=== PATIENT | female | born 1990 | race Caucasian/White ===

== ENCOUNTER 2020-03-27 04:17 | Emergency (ER) | payer OTHER, SELFPAY ==
--- NOTE | ~2020-03-27 | CT_ITS ---
EXAMINATION: CTA chest PE protocol DATE: 03/27/2020 08:21 CDT INDICATION: Chest pain and elevated d-dimer. TECHNIQUE: Computed tomographic angiography (CTA) of the chest was performed with 100 mL Omnipaque-35 0 intravenous contrast. The dose-length product was 322.65 mGy-cm. Maximum intensity projection 3D-re constructions of the aorta and other arteries were constructed by the technologist on a separate work station. COMPARISON: Chest x-ray dated 03/27/2020. FINDINGS: Study is technically adequate without evidence for pulmonary embolism. No evidence for aort ic aneurysm or dissection. Heart size normal. No pleural or pericardial effusion. No thoracic lymphad enopathy. There is residual thymic tissue. No pneumothorax. No focal airspace consolidation. No endob ronchial lesions. No acute osseous abnormality. IMPRESSION: 1. No evidence for pulmonary embolism. No acute cardiopulmonary disease. Reviewed, dictated and finalized at location A.
--- NOTE | ~2020-03-27 | XR_ITS ---
EXAMINATION: XR chest 2V 03/27/2020 04:42 INDICATION: Chest pain PROCEDURE: PA and lateral views of the chest COMPARISON: No prior studies for comparison. FINDINGS: The lungs are clear. The cardiomediastinal silhouette is within normal limits. There are no pleural effusions. There is no pneumothorax suspected. IMPRESSION: 1: NO ACUTE CARDIOPULMONARY DISEASE. Reviewed, dictated and finalized at location A.
[2020-03-27 04:23] VITALS: BP 104/94; PULSE 89; RESP 18; TEMP 36.9; O2SAT 100
[2020-03-27 04:26] VITALS: PULSE 88
--- NOTE | 2020-03-27 04:27 | ECG_ITS ---
Measurements Intervals [place] Rate: 79 P: 30 TX: 175 QRS: 29 QRSD: 85 T: 28 QT: 373 QTc: 429 Interpretive Statements SINUS RHYTHM INCOMPLETE RIGHT BUNDLE BRANCH BLOCK BASELINE WANDER- II, III, V6 BORDERLINE ECG Electronically Signed On 03-27-2020 7:50:02 CDT by Nathan Gage D.O.
[2020-03-27] MEDS: ASPIRIN 81 MG CHEWABLE TABLET 324 MG PO (04:31)
--- NOTE | 2020-03-27 04:37 | ED.CHESTPAIN ---
HPI - Chest Pain General Chief Complaint: Chest Pain Stated Complaint: CP Time Seen by Provider: 03/27/20 04:26 Source: RN notes reviewed History of Present Illness HPI narrative: Patient presents emergency department from home for chest pain. Patient states she has been having intermittent chest pain for the past 3 days. Pain is located in the left upper chest and does not radiate. Described as aching in nature. Patient states that symptoms do appear to be worse when she has anxiety. She denies any fevers or chills shortness of breath abdominal pain nausea vomiting or any other symptoms. Patient states that the episode this evening awoke her from sleep Related Data Allergies Allergy/AdvReac Type Severity Reaction Status Date / Time No Known Allergies Allergy Verified 03/27/20 04:25 Review of Systems Review of Systems: Narrative: Gen.: Denies fevers or chills ENT: Denies congestion Respiratory: Denies shortness of breath or cough CV: See HPI GI: Denies abdominal pain nausea, emesis or diarrhea denies burning, urgency, frequency or hematuria Musculoskeletal: Denies back pain or muscle pain Neuro: Denies numbness, tingling, weakness or focal weakness Skin: Denies rash Except as documented, all other systems reviewed and negative PMFSH Past Medical History Medical History (Updated 03/27/20 @ 06:47 by Jabari Ordonez DO) Patient denies significant medical history Social History Social History (Updated 03/27/20 @ 04:38 by Jabari Ordonez DO) Smoking status: Never smoker Gender identity (if verbalized by the patient): Female Exam Narrative: Exam Narrative: APPEARANCE: No acute distress, nontoxic, resting in bed EYES: EOMI HEENT: Normocephalic, atraumatic, OMM RESPIRATORY: No respiratory distress Clear to auscultation bilaterally with no rhonchi wheezing or rales. CARDIOVASCULAR: Regular rate and rhythm without murmurs rubs or gallops. ABDOMINAL: Soft, nontender, nondistended, no rebound or guarding MUSCULOSKELETAl: Moves all extremities. No clubbing, cyanosis or edema. NEURO: Awake and alert. Following commands, speech normal, no focal deficits SKIN:: Warm, dry. No rashes lesions or abrasions PSYCHIATRIC: Normal affect/mood, Course Course Emergency Course: Patient states chest pain has resolved following GI cocktail Discussed with patient results of workup and diagnosis. Discussed need for follow-up with primary care, proper use of medication, and reasons to return to the emergency department. Patient understands and agrees to current treatment plan Vital Signs Vital signs: Vital Signs Temperature 98.4 F 03/27/20 04:23 Pulse Rate 89 03/27/20 04:23 Respiratory Rate 18 03/27/20 04:23 Blood Pressure 104/94 H 03/27/20 04:23 Pulse Oximetry 100 03/27/20 04:23 Temperature 98.4 F 03/27/20 04:23 Pulse Rate 60 03/27/20 08:35 Respiratory Rate 20 03/27/20 08:35 Blood Pressure 97/77 L 03/27/20 08:35 Pulse Oximetry 100 03/27/20 08:35 MDM - Chest Pain MDM Narrative Medical decision making narrative: Patient's EKGs and labs are without significant high risk changes. Cardiac risk factors reviewed. Patient is felt likely low risk for ACS and reasonable for further risk stratification testing as an outpatient. CTA shows no PE, aneurysm or pneumonia patient is felt to be a reasonable candidate for continued evaluation as an outpatient Lab Data Result diagrams: 03/27/20 04:30 03/27/20 04:30 Labs: Lab Results 03/27/20 03/27/20 03/27/20 Range/Units 04:29 04:30 04:30 WBC 9.7 (4.5-10.0) K/mm3 RBC 4.81 (4.2-5.4) M/mm3 Hgb 14.8 (12.0-15.0) g/dL Hct 41.6 (37.0-47.0) % MCV 86.5 (80-100) fl MCH 30.8 (26-34) pg MCHC 35.6 (32-36) g/dl RDW 11.6 (11.5-14.5) % Plt Count 301 (150-375) k/mm3 MPV 8.6 (7.4-10.4) fl Immature Gran % (Auto) 0.3 (0-0.5) % Neut % (Auto) 46.1 (45.5-73.1) % Lymph % (Au
[2020-03-27 04:38] LABS: Basophils Absolute Auto 0.1 K/mm3 (0.0-0.1); Basophils Percent Auto 1.1 % (0.2-1.2); Eosinophils Absolute Auto 0.3 K/mm3 (0-0.3); Eosinophils Percent Auto 2.6 % (0-4.4); Hematocrit 41.6 % (37.0-47.0); Hemoglobin 14.8 g/dL (12.0-15.0); Immature Granulocyte Absolute 0.03 K/mm3 (0.00-0.031); Immature Granulocyte Percent A 0.3 % (0-0.5); Lymphocytes Absolute Auto 4.22 K/mm3 (0.9-3.2); Lymphocytes Percent Auto 43.5 % (18.3-44.2); Mean Corpuscular HGB Conc 35.6 g/dl (32-36); Mean Corpuscular Hemoglobin 30.8 pg (26-34); Mean Corpuscular Volume 86.5 fl (80-100); Mean Platelet Volume 8.6 fl (7.4-10.4); Monocytes Absolute Auto 0.6 K/mm3 (0.1-0.6); Monocytes Percent Auto 6.4 % (2.6-8.5); Neutrophils Absolute Auto 4.5 K/mm3 (1.3-6.7); Neutrophils Percent Auto 46.1 % (45.5-73.1); Platelet Count Result 301 k/mm3 (150-375); Red Blood Count 4.81 M/mm3 (4.2-5.4); Red Cell Distribution Width 11.6 % (11.5-14.5); White Blood Count 9.7 K/mm3 (4.5-10.0)
[2020-03-27 04:49] LABS: INR 0.9; Prothrombin Time 12.3 Seconds (11.1-14.7)
[2020-03-27 04:50] LABS: Partial Thromboplastin Time 30.2 SECONDS (22.3-36.8)
[2020-03-27 04:51] LABS: Anion Gap 6 mmol/L (8-16); Blood Urea Nitrogen 13 mg/dL (7-17); Calcium 9.2 mg/dL (8.4-10.2); Carbon Dioxide 27 mmol/L (22-30); Chloride 103 mmol/L (98-107); Estimated CRCL calculation 98 ml/min; Estimated Glomerular Filt Rate > 60; Glucose 91 mg/dL (65-105); Potassium 3.7 mmol/L (3.4-5.0); Sodium 136 mmol/L (137-145)
[2020-03-27 04:52] LABS: D Dimer 0.53 ug/mL (<0.48)
[2020-03-27 04:53] LABS: Alanine Aminotransferase 24 U/L (4-35); Albumin Level 4.1 g/dL (3.5-5.1); Alkaline Phosphatase 71 U/L (38-126); Aspartate Amino Transferase 29 U/L (14-36); Bilirubin,Total 0.3 mg/dL (0.2-1.3); Lipase 61 U/L (23-300)
[2020-03-27] MEDS: KETOROLAC 30 MG/ML VIAL (*BKC) IV PUSH (04:58)
[2020-03-27 05:03] LABS: Troponin I < 0.012 ng/mL (0.000-0.034)
[2020-03-27 05:56] VITALS: BP 111/64; PULSE 66; RESP 16; O2SAT 98
[2020-03-27 06:59] VITALS: BP 115/78; PULSE 66; RESP 17; O2SAT 99
[2020-03-27 07:41] LABS: Troponin I < 0.012 ng/mL (0.000-0.034)
[2020-03-27 08:31] VITALS: BP 97/77; PULSE 60; RESP 20; O2SAT 100
[2020-03-27 08:35] VITALS: BP 97/77; PULSE 60; RESP 20; O2SAT 100
== END 2020-03-27 08:36 | disposition home or self-care (01) ==
PROVIDERS: Emergency Provider Emergency Medicine
DX: R07.89 Other chest pain (principal); I45.10 Unspecified right bundle-branch block
CPT/HCPCS: 36415; 71046; 71275; 80048; 80076; 83690; 84484; 85025; 85380; 85610; 85730; 93005; 96374; 99284; A9270; J1885; Q9967

== ENCOUNTER 2021-06-30 08:51 | Emergency (ER) | payer OTHER, SELFPAY ==
[2021-06-30 09:05] VITALS: BP 112/61; PULSE 88; RESP 16; TEMP 36.8; O2SAT 100
--- NOTE | 2021-06-30 09:13 | ED.FEMALEGU ---
HPI - Female Genitourinary General Chief complaint: Urogenital-Female Stated complaint: UTI Time Seen by Provider: 06/30/21 09:13 Source: patient and RN notes reviewed Mode of arrival: ambulatory Limitations: no limitations History of Present Illness HPI Narrative: 30-year-old female presents to the [facility] with complaints of UTI. Patient states that she has had urgency, burning, frequency and feels like she always has to urinate even after she gets goes. Denies chest pain, abdominal pain. No fevers. No nausea vomiting or diarrhea. Denies any concerns for an STD or . MD elicited complaint: UTI Related Data Home Medications Medication Instructions Recorded Confirmed levothyroxine 25 mcg PO DAILY 06/30/21 06/30/21 Allergies Allergy/AdvReac Type Severity Reaction Status Date / Time No Known Allergies Allergy Verified 03/27/20 04:25 Review of Systems Review of Systems: All systems reviewed & are unremarkable except as noted in HPI and below Constitutional: Constitutional: Reports no additional constitutional complaints, Denies chills and Denies fatigue Eyes: Eyes: Reports no additional eye complaints ENT: Reports system reviewed and no additional complaints, except as documented Cardiovascular: Cardiovascular: Reports no additional cardiovascular complaints and Denies chest pain Respiratory: Respiratory: Reports no additional respiratory complaints, Denies cough, Denies dyspnea and Denies wheezing Gastrointestinal: Gastrointestinal: Reports no additional gastrointestinal complaints, Denies abdominal pain, Denies nausea and Denies vomiting Genitourinary: Genitourinary: Reports as per HPI, Reports nocturia, Reports dysuria, Denies flank pain, Denies urinary incontinence and Denies vaginal discharge Musculoskeletal: Musculoskeletal: Reports no additional musculoskeletal complaints Integumentary/Breasts: Skin/Breast: Reports system reviewed and no additional complaints, except as docu Neurologic: Reports system reviewed and no additional complaints, except as documented Psychiatric: Psychiatric: Reports no additional psychiatric complaints Allergic/Immunologic: Allergic/Immunologic: Reports no additional allergic/immunologic complaints PMFSH Past Medical History Medical History (Updated 06/30/21 @ 09:21 by Charis Garcia) Patient denies significant medical history Surgical History Surgical History (Updated 06/30/21 @ 09:17 by Charis Garcia) Hx of dilation and curettage Social History Social History Smoking status: Never smoker Gender identity (if verbalized by the patient): Female Comments At the time of my signature, I reviewed and agree with the nursing past medical, surgical, social, and family history. There is no relevant family history pertinent to the patient complaint. Exam Const: General: healthy appearing, no acute distress and alert Nutritional Appearance: well nourished Orientation/consciousness: patient oriented x3 Limitations: no limitations HENMT: Head: normal to inspection Ears: external ears normal, TM's normal bilaterally and EAC's normal Eyes: Pupils: Equal, round and reactive pupils present Neck: Neck: normal visual inspection, no lymphadenopathy and no meningeal signs Chest: Chest palpation & inspection: normal inspection of the chest Resp: Effort & Inspection: normal respiratory effort and no use of accessory muscles Auscultation: clear to auscultation bilaterally, no crackles, no rales, no rhonchi and no wheezes Cardio: Rate: regular rate Rhythm: regular rhythm GI: GI Palp: Yes Soft to palpation, No Tenderness to palpation present (GI) and No Guarding due to palpation present (GI) : General: Yes no CVA tenderness Back/Spine/Pelvis: Back: no CVA tenderness Skin: General skin exam: normal color Wounds: no wounds Neuro: General: patient oriented x3, moves all extremities, no meningeal signs
== END 2021-06-30 09:30 | disposition home or self-care (01) ==
PROVIDERS: Emergency Provider Nurse Practitioner
DX: N30.01 Acute cystitis with hematuria (principal)
CPT/HCPCS: 81003; 87077; 87086; 87088; 87186; 99213; G0463

== ENCOUNTER 2022-06-08 13:22 | Outpatient (RCR) | payer OTHER, SELFPAY ==
--- NOTE | 2022-06-08 17:04 | PC.NURSE ---
Addendum entered by Lori Lux RN 06/08/22 17:38: Phone call was made to reenforce attempting to breastfeed, pumping her breast for stimulating milk production, then supplementing. Mother will follow up next week either Saturday or Saturday for weight with either Dr Hanna's office or at [facility]. Original Note: In- 1332 Out- 1443 Reason for visit: Latch Issues pre and post frenulectomy History: Mother's history is limited as mother did not delivery at [place] and doesn't know all her delivery information. mother delivered vaginally after a very long labor . She pushed for five hours . Infant was assisted with vacuum suction. Mother states that after delivery the next morning they collected her blood and the results were low but was over the line for needing a transfusion. She thinks she may have hemorrhaged. There was some separation after as well. Mother's history includes hypothyroidism and she takes Synthroid. History: was born vaginally assisted with a vacuum and due to a poor latch related to a tied tongue was started on formula supplementation. Observations: Mother works well with her , supports her breast with a sandwich hold and appears comfortable holding and moving her around. Encouraged skin to skin multiple times as infant became frustrated with learning to breastfeed. Infant quickly responds in a positive manner to the bottle nipple touch his mouth. After paced bottle feeding with breast milk to get infant past the late feeding cues, not so hungry and more settled, then infant after multiple attempt was effectively latched to the mother's left breast using football positioning utilizing the sandwich hold of the breast. Infant was detached after 20 minutes to assess the nipple and mother was educated on not allowing infant to breastfeed if there is pain and how to assess the nipple after a breastfeed. Nipple was not misshaped after the , mother denied pain when asked multiple times, infant demonstrated good rocking jaw motion with appropriate suck/swallow ratios. Mother was encouraged to not limit to only 15 minutes of but to allow 20 minutes and if there's no pain letting breastfeed as long as there's swallowing until detaches, then offering the other breast. Working together the process of supplementing infant with a bottle (formula) and skin to skin we were able to settle into latching at the breast effective using the football/sandwich hold method. Infant effectively breastfed for 20 minutes. Mother was encouraged to do a vacation with a day spent with a lot of skin to skin, food and water nearby for mother, spending time getting to know her and her infant getting to know her and this new technique of learning to breastfeed more with the new tongue movement. weight: 7-13 Lowest weight: 7-5 Last weight: 7-8 Pre-feed weight: 3369g (estimated due to milk being spilled and using bottle supplementation along with . There was approximately 1 oz of breastmilk and formula fed to the .) Post-feed weight: 3402g (see above) Plan of Care: Mother agrees to continue to practice her working on calming down with supplementation, then latch effectively. Mother also demonstrated how to hand express and bring her milk down to encourage to go from the pumped breastmilk to nurse at the breast and get milk. Follow up plans: Mother was presented the opportunity to call if she has any questions or concerns. Mother voiced understanding of when to reach out to the knot tying operator and to continue to supplement to keep her infant adequately voiding, stooling, gaining weight and demonstrating contentment after feedings.
== END 2022-09-06 23:59 | disposition home or self-care (01) ==
LOC: ANHOBOP 13:22
PROVIDERS: PCP Pediatrics; Visit Provider Pediatrics
DX: Z39.1 Encounter for care and examination of lactating mother (principal)
CPT/HCPCS: 99203; G0463